=== PATIENT | female | born 1990 | race Asian ===

== ENCOUNTER → 2019-12-25 | Outpatient (REF) | payer OTHER | LOC: M SFHCLERA 17:08 | PROVIDERS: ATTEND Physician Assistant | DX: K14.9 Disease of tongue, unspecified (principal) | CPT/HCPCS: 87070; G0463 ==

== ENCOUNTER → 2020-06-02 | Outpatient (REF) | payer OTHER ==
[2020-06-02 15:34] LABS: HEMATOCRIT 35.1 % (36.0-47.0); HEMOGLOBIN 11.2 g/dl (12.0-15.5); MEAN CORPUSCULAR HEMOGLOBIN 32.2 pg (27.0-33.0); MEAN CORPUSCULAR HGB CONC 31.9 g/dl (32.0-36.5); MEAN CORPUSCULAR VOLUME 100.9 fl (80.0-96.0); PLATELET COUNT, AUTOMATED 228 10^3/uL (150-450); RED BLOOD COUNT 3.48 10^6/uL (4.00-5.40); WHITE BLOOD COUNT 13.8 10^3/uL (4.0-10.0)
== END ==
LOC: M PLALAB 13:37
PROVIDERS: ATTEND Advanced Practice Midwife
DX: O34.211 Maternal care for low transverse scar from previous cesarean delivery (principal)

== ENCOUNTER → 2020-06-02 | Outpatient (CLI) | payer OTHER ==
--- NOTE | 2020-06-02 14:01 | REP ---
Clinical: History of placenta previa. Comparison: None . Findings: Examination demonstrates a single live intrauterine in cephalic presentation. motion is identified by technologist. Placenta is noted anterior and grade I without evidence for placenta previa or abruption. Amniotic fluid volume is normal. Cervix measures 3.3 cm in length and appears closed. No evidence for nuchal cord. Gestational age by LMP 30 weeks 5 days with VERONICA 08/06/2020 . Gestational age by current measurements 31 weeks 3 days with VERONICA 08/01/2020 . FHR equals 146 beats per minute. Estimated weight 1154 grams ( 68th percentile). Amniotic fluid index: 14.3 cm (8.9 - 23.7) Impression: Single live intrauterine in cephalic presentation demonstrating appropriate interval growth . No evidence for placenta previa.
== END ==
LOC: M WHC 13:07
PROVIDERS: ATTEND Advanced Practice Midwife
DX: O34.211 Maternal care for low transverse scar from previous cesarean delivery (principal); O44.03 Complete placenta previa NOS or without hemorrhage, third trimester; Z3A.31 31 weeks gestation of pregnancy

== ENCOUNTER → 2020-07-13 | Outpatient (REF) | payer OTHER ==
[~2020-07-13] MED LIST: ALBU8.5H INH; IBUP80TA PO; PREN200C PO
== END ==
LOC: M SFHCWAGY 09:54
PROVIDERS: ATTEND Advanced Practice Midwife
DX: O34.219 Maternal care for unspecified type scar from previous cesarean delivery (principal)

== ENCOUNTER → 2020-07-28 | Outpatient (CLI) | payer OTHER | LOC: M LABSMTC 10:37 | PROVIDERS: ATTEND Anesthesiology | DX: Z03.818 Encounter for observation for suspected exposure to other biological agents ruled out (principal); Z11.59 Encounter for screening for other viral diseases ==

== ENCOUNTER 2020-08-02 05:28 | Inpatient (IN) | payer OTHER ==
[~2020-08-02] VITALS: Ht 157.5 cm; Wt 88.6 kg
[2020-08-02] VITALS (8 sets, daily range): BP systolic 95–116; BP diastolic 55–67
[~2020-08-02 05:28] MED LIST changes: -IBUP80TA PO
[2020-08-02] MEDS ORDERED: LACTATED RINGER'S 1000 ML IV STA (05:42)
[2020-08-02] MEDS ORDERED: LR 1,000 ML IV SCH ×2 (05:42→09:30)
[2020-08-02] MEDS ORDERED: ceFAZolin SOD 2 GM in IV 1 EA IV ONE (05:45)
[2020-08-02] MEDS ORDERED: BICITRA 30ML SOLN UDC PO ONE (05:45)
[2020-08-02 06:42] LABS: HEMATOCRIT 37.6 % (36.0-47.0); HEMOGLOBIN 12.8 g/dl (12.0-15.5); MEAN CORPUSCULAR HEMOGLOBIN 33.2 pg (27.0-33.0); MEAN CORPUSCULAR VOLUME 97.4 fl (80.0-96.0); PLATELET COUNT, AUTOMATED 318 10^3/uL (150-450); RED BLOOD COUNT 3.86 10^6/uL (4.00-5.40); WHITE BLOOD COUNT 12.5 10^3/uL (4.0-10.0)
[2020-08-02] MEDS ORDERED: MORPHINE PRES-FREE INJ 10 MG/10 ML VIAL (J2274) As Ordered ONE (07:17)
[2020-08-02] MEDS ORDERED: OXYTOCIN INJ 10 UNITS/ML VIAL (J2590) As Ordered ONE (07:18)
[2020-08-02] MEDS ORDERED: NALOXONE INJ 0.4MG/1ML VIAL (J2310 PER 1MG) IV PRN ×2 (07:46)
[2020-08-02] MEDS ORDERED: NALBUPHINE HCL 10 MG/ML AMP (J2300) IV PRN ×2 (07:46→09:30)
[2020-08-02] MEDS ORDERED: ONDANSETRON 4MG/2ML VIAL IV PRN ×3 (07:46→09:30)
[2020-08-02] MEDS ORDERED: METOCLOPRAMIDE INJ 10MG/2ML VIAL (J2765 PER 1) IV PRN (07:46)
[2020-08-02] MEDS ORDERED: diphenhydrAMINE 50MG/ML VIAL (J1200) IV PRN (07:46)
[2020-08-02] MEDS ORDERED: PHENYLephrine HCL 500 MCG/5 ML (100MCG/ML) SYRINGE (J2370) As Ordered ONE (08:10)
[2020-08-02] MEDS ORDERED: ONDANSETRON 4MG/2ML VIAL As Ordered ONE (08:10)
[2020-08-02] MEDS ORDERED: ePHEDrine SULFATE 25 MG/5 ML(5MG/ML) SYRINGE As Ordered ONE (08:10)
[2020-08-02] MEDS ORDERED: dexameTHASONE 4 MG/ML 1ML VIAL (J1100 PER 1MG) As Ordered ONE (08:10)
[2020-08-02] MEDS ORDERED: OXYTOCIN DRIP 30 UNITS in IV 1 EA IV SCH ×2 (08:46→08:56)
[2020-08-02] MEDS ORDERED: MEASLES,MUMPS,RUBELLA VACCINE INJ (MMR-II) (90707) SC SCH ×2 (09:00)
[2020-08-02] MEDS: PRENATAL VITAMINS CHEWABLE TABLET PO SCH (09:00)
[2020-08-02] MEDS ORDERED: DOCUSATE SODIUM 100 MG CAP PO PRN ×2 (09:00)
[2020-08-02] MEDS ORDERED: PERCOCET 5MG/325MG TAB PO PRN ×2 (09:00)
[2020-08-02] MEDS ORDERED: PRENATAL VITAMINS CHEWABLE TABLET PO SCH (09:00)
[2020-08-02] MEDS ORDERED: RHOGAM 300 MCG (1500 IU) INJ (J2790) IM SCH ×2 (09:00)
[2020-08-02] MEDS ORDERED: KETOROLAC 30 MG/ML 1ML VIAL IV SCH (09:00)
[2020-08-02] MEDS ORDERED: OXYTOCIN 30 UNITS IN 0.9% NaCl 500ML IV BAG (J2590) As Ordered ONE (09:05)
[2020-08-02] MEDS ORDERED: fentaNYL 100 MCG/2 ML INJECTION (J3010) As Ordered ONE (09:14)
[2020-08-02] MEDS: fentaNYL 100 MCG/2 ML INJECTION (J3010) IV PRN ×4 (09:22→10:24)
[2020-08-02] MEDS ORDERED: KETOROLAC 30 MG/ML 1ML VIAL As Ordered ONE (10:15)
[2020-08-02] MEDS: LR 1,000 ML IV SCH (10:16)
[2020-08-02] MEDS: KETOROLAC 30 MG/ML 1ML VIAL IV SCH ×3 (10:17→21:09)
[2020-08-02 12:41] LABS: HIV 1&2 SCREEN CENTAUR NEGATIVE (NEGATIVE)
[2020-08-03 02:00] VITALS: BP 105/53
[2020-08-03] MEDS: LR 1,000 ML IV SCH (02:30)
[2020-08-03] MEDS: KETOROLAC 30 MG/ML 1ML VIAL IV SCH (04:01)
[2020-08-03 06:00] VITALS: BP 112/58
[2020-08-03 07:12] LABS: MEAN CORPUSCULAR HEMOGLOBIN 32.1 pg (27.0-33.0); MEAN CORPUSCULAR HGB CONC 31.9 g/dl (32.0-36.5); MEAN CORPUSCULAR VOLUME 100.6 fl (80.0-96.0); PLATELET COUNT, AUTOMATED 240 10^3/uL (150-450); RED BLOOD COUNT 3.08 10^6/uL (4.00-5.40); WHITE BLOOD COUNT 14.2 10^3/uL (4.0-10.0)
[2020-08-03 07:32] LABS: HEMOGLOBIN 9.9 g/dl (12.0-15.5)
[2020-08-03] MEDS: PERCOCET 5MG/325MG TAB PO PRN ×3 (07:50→21:18)
[2020-08-03] MEDS: PRENATAL VITAMINS CHEWABLE TABLET PO SCH (07:50)
--- NOTE | 2020-08-03 09:14 | IPNPDOC ---
Progress Note Date of Service: Aug 03, 2020 Day#: 1 Progress Note POD 1 SUBJECT: Ban is a 29yo [id number] s/p uncomplicated RLTCS, doing well /post-op day # 1. She has been ambulating, voiding spontaneously without issue and tolerating regular diet. No issues with feeding baby. Reports lochia is like a normal period. Pain overall well controlled. Denies f/c/n/v/CP/SOB. OBJECTIVE: VITAL SIGNS: Within normal limits, afebrile. Alert and oriented times three. Abdomen: Fundus firm at U-2. Soft, appropriately tender to palpation. Optifoam dressing is clean/dry with a few very small areas of strikethrough. Extremities: 1+ edema of BLE Labs: pre-op H/H 12.8/37.6 post-op H/H 9.9/31 ASSESSMENT: Ban is a 29yo [id number] s/p uncomplicated RLTCS, doing well /post-op day # 1. Vitals within normal limits, afebrile, hemodynamically stable with no evidence of infection. PLAN: 1. Routine care 2. Percocet and Motrin for pain. 3. Encourage breast feeding and ambulation. Also use of IS. 4. Regular diet 5. Undecided on contraception 6. Likely discharge home tomorrow if meeting all milestones Chayito Hartmann MD VS, I&O, 24H, Fishbone Vital Signs/I&O Vital Signs Date Time Temp Pulse Resp B/P (MAP) Pulse Ox O2 Delivery O2 Flow Rate FiO2 08/03/20 07:50 18 08/03/20 06:00 99.6 80 112/58 (76) 97 Room Air I&O- Last 24 Hours up to 6 AM 08/03/20 06:00 Intake Total 850 ml Output Total 1500 ml Balance -650 ml Laboratory Data 24H LABS Laboratory Tests 2 08/02/20 19:32: Serology Scanned Report Hepatitis B Testing 08/03/20 06:36: Nucleated Red Blood Cells % (auto) 0.0 CBC/BMP Laboratory Tests 08/03/20 06:36 Chayito Hartmann MD Aug 03, 2020 09:14
[2020-08-03 10:00] VITALS: BP 112/57
[2020-08-03] MEDS ORDERED: IBUPROFEN 800 MG TAB PO SCH (11:00)
[2020-08-03] MEDS: IBUPROFEN 800 MG TAB PO SCH ×2 (12:14→21:07)
[2020-08-03 14:00] VITALS: BP 110/61
[2020-08-03 18:00] VITALS: BP 123/63
[2020-08-04] MEDS: IBUPROFEN 800 MG TAB PO SCH ×2 (03:38→12:16)
[2020-08-04] MEDS: PERCOCET 5MG/325MG TAB PO PRN ×3 (03:39→15:32)
[2020-08-04 06:00] VITALS: BP 118/60
[2020-08-04] MEDS: PRENATAL VITAMINS CHEWABLE TABLET PO SCH (09:26)
[2020-08-04] MEDS ORDERED: IBUP80TA PO (15:08)
--- NOTE | 2020-08-14 10:45 | IPN ---
DATE: 08/02/2020 Patient and requested circumcision of their male after discussing risks and benefits of the circumcision, the medical and non-medical indications, the penile block and aftercare, expressed understanding of penile block aftercare and bleeding. Signed a consent form. All questions were answered, 20-minute discussion. We await clearance by the artificial breeding technician. XI
--- NOTE | 2020-08-25 12:08 | RO ---
DATE OF OPERATION: 08/02/2020 PREOPERATIVE DIAGNOSIS: 39 weeks, prior section x2. POSTOPERATIVE DIAGNOSIS: 39 weeks, prior section x2. PROCEDURE: Repeat low-transverse section. SURGEON: Angel Luis Contreras MD SHELLFISH SORTER: Chayito Hartmann MD ANESTHESIA: Spinal. ESTIMATED BLOOD LOSS: 500 mL. URINE OUTPUT: 75 mL. I.V. FLUIDS: 1100 mL lactated Ringer's. FINDINGS: 4550 grams, 10 pounds, 0 ounce male infant, Apgars 9 and 9. Normal uterus, fallopian tubes, and ovaries. DESCRIPTION OF PROCEDURE: The patient was taken to the operating room where spinal anesthesia was induced. She was prepped and draped in a sterile fashion in the supine position. A Hartman catheter was placed. A Pfannenstiel skin incision was made with a scalpel and carried through to the fascia. The fascia was nicked and extended. The fascia was resected off the rectus muscles. The peritoneal cavity was entered. Bladder flap was created. A Mobius retractor was placed. Curvilinear incision was made in the lower uterine segment until clear fluid was noted. This was extended manually. The was delivered from the vertex position with the assistance from the vacuum extractor. The shoulders were delivered with ease. The cord was doubly clamped and cut. The was handed off to the waiting nurses. The placenta was expressed. The uterus was closed with 0-Vicryl in a running locking fashion. A second imbricating layer of 0-Vicryl was placed. The Mobius retractor was removed. The peritoneum was closed with 2-0 Vicryl. The fascia was closed with 0-Vicryl in a running fashion. The deep layer was irrigated. The skin was closed with 4-0 Monocryl with subcuticular sutures. Sponge, instrument, and needle counts were correct. Chayito Hartmann MD, assisted throughout the procedure. She was indispensable for the successful completion of the procedure. She helped create each layer of the incision and deliver the fetus. [facility]
--- NOTE | 2020-08-29 16:32 | DSES ---
DATE OF ADMISSION: 08/02/2020 DATE OF DISCHARGE: 08/04/2020 DISCHARGE DIAGNOSES: Repeat section at term, postop day two, stable condition. SURGEON: Dr. Angel Luis Contreras HISTORY: Ban is a 29-year-old 3, para 3-0-0-3 now who underwent a repeat section at term. Her surgery was uncomplicated. She did deliver a live . Her postoperative course has been uncomplicated. She has been out of bed for self-care, pericare and care. Her pain has been well controlled with p.o. pain medication. She is voiding without difficulty, passing flatus, tolerating fluids and a regular diet. She is without difficulty. OBJECTIVE: Temp 98.3, pulse 94, respirations 18, BP is 118/60. She is alert and oriented times 3. Breasts are soft and nontender. Nipples are intact. Her abdomen is fundus firm at one fingerbreadth below umbilicus. Her incision; dressing is dry and intact, no drainage noted. Perineum is intact. Lochia rubra is scant. Bilateral lower extremities with +2 pitting edema. Preoperative CBC: Hemoglobin 12.8, hematocrit 37.6, platelets 318. Postoperative CBC: Hemoglobin 9.9, hematocrit 31.0, platelets 240. PLAN: Discharge the patient home today. She is to followup at [facility] for a two week incision check and an eight week visit. Prescriptions have been E-prescribed for pain medication for her to her pharmacy by Dr. Angel Luis Contreras. I did review discharge instructions that include breast care, incision care, pericare, pelvic rest, activity and lifting restrictions, access to care and danger signs to report to her provider. The patient desires discharge. XI
== END 2020-08-04 16:25 | disposition home or self-care (01) | DRG 773 ==
LOC: M LDI 05:28 → M OBS 10:55
PROVIDERS: ADMIT Specialist; ATTEND Specialist
PROC: 10D00Z1 Extraction of Products of Conception, Low, Open Approach (ICD-10-PCS; principal; 2020-08-02 07:30)
DX: O34.211 Maternal care for low transverse scar from previous cesarean delivery (principal); Z37.0 Single live birth; Z3A.39 39 weeks gestation of pregnancy; Z88.2 Allergy status to sulfonamides

== ENCOUNTER → 2020-08-16 | Outpatient (CLI) | payer OTHER ==
[~2020-08-16] MED LIST changes: +IBUP80TA PO
[2020-08-16 13:50] LABS: FREE T4 1.17 NG/DL (0.76-1.46); THYROID STIMULATING HORMONE 0.512 uIU/ML (0.358-3.740)
== END ==
LOC: M PLALAB 11:26
PROVIDERS: ATTEND Specialist
DX: N92.5 Other specified irregular menstruation (principal)

== ENCOUNTER → 2022-08-22 | Outpatient (CLI) | payer OTHER ==
[2022-08-22 16:13] LABS: HEMATOCRIT 40.3 % (36.0-47.0); HEMOGLOBIN 13.1 g/dl (12.0-15.5); MEAN CORPUSCULAR HEMOGLOBIN 31.4 pg (27.0-33.0); MEAN CORPUSCULAR HGB CONC 32.5 g/dl (32.0-36.5); MEAN CORPUSCULAR VOLUME 96.6 fl (80.0-96.0); PLATELET COUNT, AUTOMATED 281 10^3/uL (150-450); RED BLOOD COUNT 4.17 10^6/uL (4.00-5.40); WHITE BLOOD COUNT 7.1 10^3/uL (4.0-10.0)
[2022-08-22 16:45] LABS: ERYTHROCYTE SEDIMENTATION RATE 5 mm/hr (0-20)
[2022-08-22 17:01] LABS: ALBUMIN 4.3 GM/DL (3.2-5.2); ALT/SGPT 17 U/L (12-78); BILIRUBIN,TOTAL 0.7 MG/DL (0.2-1.0); BLOOD UREA NITROGEN 9 MG/DL (7-18); CALCIUM LEVEL 9.1 MG/DL (8.5-10.1); CARBON DIOXIDE LEVEL 26 MEQ/L (21-32); CHLORIDE LEVEL 107 MEQ/L (98-107); CREATININE FOR GFR 0.67 MG/DL (0.55-1.30); FERRITIN 17 NG/ML (8-252); GLOMERULAR FILTRATION RATE > 60.0 (>60); GLUCOSE, FASTING 84 MG/DL (70-100); IRON (FE) 125 UG/DL (50-170); PERCENT SATURATION 32.4 % (13.2-45.0); SODIUM LEVEL 136 MEQ/L (136-145); THYROID STIMULATING HORMONE 0.724 uIU/ML (0.358-3.740); TOTAL IRON BINDING CAPACITY 386 UG/DL (250-450); TOTAL PROTEIN 7.8 GM/DL (6.4-8.2)
[2022-08-22 17:29] LABS: VITAMIN B12 LEVEL 428 PG/ML (247-911)
[2022-08-24 23:08] LABS: ANA (HEP2) Positive (.)
== END ==
LOC: M LAB 15:22 → M RAD 15:22
PROVIDERS: ATTEND Physician Assistant
DX: R53.83 Other fatigue (principal); R07.9 Chest pain, unspecified

== ENCOUNTER → 2022-09-24 | Outpatient (CLI) | payer OTHER ==
[2022-09-24 15:32] LABS: HEMATOCRIT 39.9 % (36.0-47.0); HEMOGLOBIN 13.1 g/dl (12.0-15.5); MEAN CORPUSCULAR HEMOGLOBIN 31.6 pg (27.0-33.0); MEAN CORPUSCULAR HGB CONC 32.8 g/dl (32.0-36.5); MEAN CORPUSCULAR VOLUME 96.4 fl (80.0-96.0); PLATELET COUNT, AUTOMATED 288 10^3/uL (150-450); RED BLOOD COUNT 4.14 10^6/uL (4.00-5.40); WHITE BLOOD COUNT 7.1 10^3/uL (4.0-10.0)
[2022-09-24 16:13] LABS: C REACTIVE PROTEIN QUANTITATIV < 0.30 MG/DL (0.00-0.30); RHEUMATOID FACTOR QUANT < 10.0 IU/ML (<15.0)
[2022-09-24 16:33] LABS: ERYTHROCYTE SEDIMENTATION RATE 6 mm/hr (0-20)
[2022-09-26 13:08] LABS: RNP ANTIBODY < 0.2 AI (0.0-0.9); SMITHS ANTIBODY < 0.2 AI (0.0-0.9)
== END ==
LOC: M LAB 13:59
PROVIDERS: ATTEND Physician Assistant
DX: R76.8 Other specified abnormal immunological findings in serum (principal)